=== PATIENT | female | born 1960 | race Caucasian/White ===

== ENCOUNTER → 2023-07-06 08:12 | Outpatient (REF) | payer SELFPAY | LOC: WDC 08:12 | PROVIDERS: ATTENDING PHYSICIAN Obstetrics & Gynecology Gynecology; FAMILY PHYSICIAN Family Medicine | DX: Z12.31 Encounter for screening mammogram for malignant neoplasm of breast (principal) | CPT/HCPCS: 77063; 77067 ==

== ENCOUNTER → 2023-10-02 11:00 | Outpatient (REF) | payer OTHER, SELFPAY | LOC: HWRAD 11:00 | PROVIDERS: ATTENDING PHYSICIAN Obstetrics & Gynecology Gynecology; FAMILY PHYSICIAN Family Medicine | DX: E04.1 Nontoxic single thyroid nodule (principal) | CPT/HCPCS: 76536 ==

== ENCOUNTER → 2023-10-30 13:24 | Outpatient (REF) | payer OTHER, SELFPAY ==
[2023-10-30 13:48] VITALS: BP 149/87; BP_SYST 70
== END ==
LOC: RADI 13:24
PROVIDERS: ATTENDING PHYSICIAN Family Medicine
DX: E04.1 Nontoxic single thyroid nodule (principal)
CPT/HCPCS: 88173; 10005

== ENCOUNTER → 2024-07-25 13:46 | Outpatient (REF) | payer OTHER, SELFPAY | LOC: WDC 13:46 | PROVIDERS: ATTENDING PHYSICIAN Obstetrics & Gynecology Gynecology; FAMILY PHYSICIAN Family Medicine | DX: Z12.39 Encounter for other screening for malignant neoplasm of breast (principal); Z12.31 Encounter for screening mammogram for malignant neoplasm of breast | CPT/HCPCS: 77063; 77067 ==